=== PATIENT | male | born 1990 | race Caucasian/White ===

== ENCOUNTER 2022-04-04 18:04 | Emergency (ER) | payer BC, OTHER ==
[~2022-04-04] VITALS: Ht 182.9 cm; Wt 82.3 kg
[2022-04-05] MEDS ORDERED: BOOSTRIX/ADACEL VACCINE (DIPHTH/PERTUSS/ACELL/TETANUS) 0.5ML SYR IM ONE (04:05)
[2022-04-05 04:18] VITALS: BP 118/65
== END 2022-04-05 04:19 | disposition home or self-care (01) ==
LOC: M ED 18:04
DX: S06.0X0A Concussion without loss of consciousness, initial encounter (principal); S01.91XA Laceration without foreign body of unspecified part of head, initial encounter; F12.10 Cannabis abuse, uncomplicated; Y04.8XXA Assault by other bodily force, initial encounter; Z23 Encounter for immunization

== ENCOUNTER 2023-12-09 12:13 | Emergency (ER) | payer OTHER, BC ==
[~2023-12-09] VITALS: Ht 182.9 cm; Wt 79.2 kg
[2023-12-09 12:13] VITALS: BP 142/98; TEMP 97.2; O2SAT 100
[2023-12-09] MEDS ORDERED: BACI500O8 TOP (13:38)
[2023-12-09] MEDS: BACITRACIN OINTMENT 30GM TUBE TOP ONE (13:46)
== END 2023-12-09 13:50 | disposition home or self-care (01) ==
LOC: M ED 12:13
DX: T21.10XA Burn of first degree of trunk, unspecified site, initial encounter (principal); X12.XXXA Contact with other hot fluids, initial encounter; F12.10 Cannabis abuse, uncomplicated; Y92.9 Unspecified place or not applicable; Y93.89 Activity, other specified; Y99.0 Civilian activity done for income or pay; Z79.2 Long term (current) use of antibiotics; T31.0 Burns involving less than 10% of body surface

== ENCOUNTER 2024-07-23 13:30 | Emergency (ER) | payer BC, OTHER ==
[~2024-07-23] VITALS: Ht 182.9 cm; Wt 83.7 kg
[~2024-07-23 13:30] MED LIST: BACI500O8 TOP
[2024-07-23 16:23] VITALS: BP 123/80; TEMP 97.9; O2SAT 99
== END 2024-07-23 16:26 | disposition home or self-care (01) ==
LOC: M ED 13:30
DX: K92.2 Gastrointestinal hemorrhage, unspecified (principal)